=== PATIENT | male | born 1995 | race Caucasian/White ===

== ENCOUNTER 2017-02-13 18:11 | Emergency (ER) | payer BC, OTHER ==
[~2017-02-13] VITALS: Ht 180.3 cm; Wt 81.6 kg
--- NOTE | 2017-02-13 18:30 | ED Upper Extremity ---
General Stated Complaint: R THUMB SMASHED Source: patient Exam Limitations: no limitations History of Present Illness Time seen by provider: 18:28 Initial Comments To ER with reports of right thumb pain after he smashed it 1 week ago in a car door. They swelling and pain persist. There is a bruise beneath the thumb nail. Onset: last week Severity: moderate Pain/Injury Location: right thumb Method of Injury: direct blow Modifying Factors: Worse With Movement Constitutional: see HPI EENTM: see HPI Respiratory: no symptoms reported Cardiovascular: no symptoms reported Genitourinary: no symptoms reported Musculoskeletal: no symptoms reported Skin: no symptoms reported Psychiatric/Neurological: No Symptoms Reported Past [id number] Hx Patient Social History Recent Foreign Travel: No Contact w/Someone Who Travel: No Physical Exam Vital Signs Vital Sign - Last 12Hours 02/13/17 18:29 Temp 97.5 Pulse 70 Resp 16 B/P (MAP) 152/90 Pulse Ox 98 O2 Delivery Room Air Capillary Refill : General Appearance: WD/WN, no apparent distress HEENT: PERRL/EOMI, normal ENT inspection Neck: non-tender, full range of motion Respiratory: no respiratory distress, no accessory muscle use Gastrointestinal: normal bowel sounds, non tender, soft Shoulder: normal inspection, non-tender Elbow/Forearm: normal inspection, non-tender, Right (O is likewise) Wrist: Yes normal inspection, Yes non-tender Hand: normal inspection, no evidence of injury, Right, swelling (there is swelling to the thumb with subungual hematoma noted) Neurologic/Psychiatric: alert, normal mood/affect, oriented x 3 Skin: normal color, warm/dry Progress Nail trephination with cautery pen Progress/Results/Core Measures Results/Orders My Orders Orders - WILLI RANDOLPH APRN Hand, Right, 3 Views (02/13/17 18:27) Vital Signs/I&O Vital Sign - Last 12Hours 02/13/17 18:29 Temp 97.5 Pulse 70 Resp 16 B/P (MAP) 152/90 Pulse Ox 98 O2 Delivery Room Air Departure Impression Impression: Primary Impression: Subungual hematoma Disposition: 01 HOME, SELF-CARE Condition: Stable Departure-Patient Inst. Decision time for Depature: 18:30 Patient Instructions: HEMATOMA Add. Discharge Instructions: 1. Return to ER for any concerns 2. You may wash your hands gently with soap and water starting WILLI Gabriel APRN Feb 13, 2017 18:30
--- NOTE | 2017-02-13 18:45 | Diagnostic Imaging Report ---
INDICATION: Slammed finger and hand. Contusion, distal phalanx. EXAMINATION: Right hand dated 02/13/2017. FINDINGS: Three views of the hand. FINDINGS: There is no evidence for an acute fracture or dislocation. The joint spaces are well maintained. There is no significant soft tissue swelling. IMPRESSION: No acute process. Dictated by: Dictated on workstation # [id number]
[2017-02-13 18:50] VITALS: BP 152/90
== END 2017-02-13 18:50 | disposition home or self-care (01) ==
LOC: ER 18:15
DX: S60.011A Contusion of right thumb without damage to nail, initial encounter (principal); W23.1XXA Caught, crushed, jammed, or pinched between stationary objects, initial encounter
CPT/HCPCS: 73130; 99282